=== PATIENT | female | born 1985 | race Caucasian/White ===

== ENCOUNTER 2023-12-31 20:25 | Emergency (ER) | payer OTHER, SELFPAY ==
[2023-12-31 20:36] VITALS: BP 101/69; PULSE 78; TEMP 37.2; O2SAT 98; BMI 29.1
--- NOTE | 2023-12-31 20:50 | CT_ITS ---
[facility] [place] [id number] Patient Name: MONICA GUTIERREZ MRN: [id number] date: 1985 Sex: F Assigned Patient Location: ER Current Patient Location: ED.[facility] Accession/Order Number: [id number] Exam Date: 12/31/2023 21:30 Report Date: 12/31/2023 22:28 At the request of: HOWARD TREJO Procedure: CT abdomen pelvis wo con EXAMINATION: CT abdomen pelvis wo con, 12/31/2023 6:30 PM PDT HISTORY: Left flank pain COMPARISON: None. TECHNIQUE: CT scan of the abdomen and pelvis was performed without IV contrast. CT dose reduction technique was used, including Automated Exposure Control. FINDINGS: Lung: No significant finding. Liver: No significant finding. Gallbladder: No significant finding. Spleen: No significant finding. Pancreas: No significant finding. Adrenal glands: No significant finding. Kidneys, ureters and bladder: No renal/urinary tract calculi. No hydronephrosis. Bladder is unremarkable. Bowel: Surgical changes from gastric bypass. No evidence of bowel obstruction. No focal inflammatory changes. Normal appendix. Colonic diverticulosis without diverticulitis. Peritoneum/retroperitoneum: No significant finding. Lymph nodes: No significant finding. Vessels: No significant finding. Body wall: No significant finding. Reproductive: IUD in place. Bones: No significant finding. CT/CT abdomen pelvis wo con IMPRESSION: No acute findings. Electronically authenticated by: ELYSIA ALVARADO Date: 12/31/2023 22:28
--- NOTE | 2023-12-31 20:52 | ED_ITS ---
Documented by User: JERILYN Saldivar 12/31/23 22:00 HPI HPI - General Adult General Chief complaint: Back Pain/Injury Stated complaint: LEFT SIDED BACK PAIN Time Seen by Provider: 12/31/23 20:46 Source: patient Mode of arrival: walk-in Limitations: no limitations History of Present Illness HPI narrative: Is a 38-year-old female who presents to the emergency department for left flank pain that began abruptly after eating dinner. She has a history of previous gastric bypass 3 years ago and laparoscopic surgery earlier this year to look for an internal hernia which was not present. She states the pain radiates from the left inferior thoracic spine to the left low back and into the left flank. She does not have abdominal pain and has not had any fevers, chills, nausea, vomiting or urinary symptoms. She is not concerned for . She took Aleve and tizanidine prior to arrival without improvement. No falls or injuries. Related Data Allergies Allergy/AdvReac Type Severity Reaction Status Date / Time ketorolac [From Toradol] Allergy Intermediate Hives Verified 12/31/23 20:36 Penicillins Allergy Intermediate Hives Verified 12/31/23 20:36 Opioid HPI Opioid Management Most Recent Opioid Data: Last Pain Scale 5 12/31/23 21:54 Last ED Pain Assessment 12/31/23 21:54 Last MAR Pain Assessment 01/01/24 00:40 Review of Systems ROS Constitutional Denies: fever or chills Ears, nose, mouth, and throat Denies: throat pain or nasal congestion Cardiovascular Denies: chest pain Respiratory Denies: shortness of breath or cough Gastrointestinal Denies: abdominal pain, nausea, vomiting or diarrhea Genitourinary Denies: painful urination Musculoskeletal Reports: back pain; Denies: neck pain or extremity pain Integumentary/Breast Denies: rash Neurological Denies: headache Hematologic/Lymphatic Denies: easy bruising or easy bleeding Exam Narrative Exam Narrative: Gen.: Awake, alert, in no distress Head: Normocephalic, atraumatic ENT: Moist mucous membranes Respiratory: No respiratory distress Gastrointestinal: Abdomen is soft, nondistended and nontender to palpation Back: No bony tenderness of the T-spine or L-spine with diffuse tenderness of the left paraspinal muscles of the left inferior thoracic back and left lumbar back. Extremities: Moves extremities equally Psych: Normal mood and affect Neuro: No focal neuro deficit Skin: Warm, dry, intact Constitutional Vital Signs, click to edit/add: Last Vital Signs Temp 98.9 F 12/31/23 20:36 Pulse 78 12/31/23 20:36 Resp 18 12/31/23 20:36 BP 101/67 12/31/23 22:19 Pulse Ox 98 12/31/23 20:36 O2 Del Method Room Air 12/31/23 20:36 Course Vital Signs Vital signs: Vital Signs Temperature 98.9 F 12/31/23 20:36 Pulse Rate 78 12/31/23 20:36 Respiratory Rate 18 12/31/23 20:36 Blood Pressure 101/69 12/31/23 20:36 Pulse Oximetry 98 12/31/23 20:36 Oxygen Delivery Method Room Air 12/31/23 20:36 Temperature 98.9 F 12/31/23 20:36 Pulse Rate 78 12/31/23 20:36 Respiratory Rate 18 12/31/23 20:36 Blood Pressure 101/67 12/31/23 22:19 Pulse Oximetry 98 12/31/23 20:36 Oxygen Delivery Method Room Air 12/31/23 20:36 Medical Decision Making MDM Narrative Medical decision making narrative: 2199: Patient medicated with IV Dilaudid, fluids, Norflex, Zofran. She was sent for CT which is pending at this time. Lab studies and urine specimen are unremarkable. Case is turned over to attending physician at this time for results of CT Medical Records Medical records reviewed: Yes I reviewed the patient's medical records Lab Data Lab results reviewed: Yes I reviewed the patient's lab results Labs: Lab Results 12/31/23 12/31/23 Range/Units 20:57 21:00 WBC 9.6 (4.0-11.0) 10^3/uL RBC 3.95 L (4.20-5.40) 10^6/uL Hgb 12.1 (12.0-16.0) g/dL Hct 37.6 (36.0-48.0) % MCV 95.2 (81.0-99.0) fL MCH 30.6 (26.7-34.0) pg MCHC 32.2 (29.9-35.2) g/dL RDW 12.1 (11.0-15.0) % Plt Count 273 (150-450) 10^3/uL MPV 10.4 (9.5-13.5) fL Neut % (Auto) 54.9 (43.0-75.0) % Lymph % (Auto) 34.5 (20.5-60.0) % [place] % (Auto) 6.3 (1.7-12.0) % Eos % (Auto) 3.2 (0.9-7.0) % Baso % (Auto) 0.9 (0.2-2.0) % Neut # (Auto) 5.3 (1.4-6.5) 10^3/uL Lymph # (Auto) 3.3 (1.2-3.8) 10^3/uL Sierra # (Auto) 0.6 (0.3-0.8) 10^3/uL Eos # (Auto) 0.3 (0.0-0.7) 10^3/uL Baso # (Auto) 0.1 (0.0-0.1) 10^3/uL Abs Immat Gran (auto) 0.02 (0.00-0.03) 10^3/uL Imm/Tot Granulo (auto) 0.2 (0.0-0.5) % Sodium 137 (136-145) mmol/L Potassium 4.0 (3.5-5.1) mmol/L Chloride 103 (98-107) mmol/L Carbon Dioxide 27.1 (21.0-32.0) mmol/L Anion Gap 10.9 BUN 22.0 H (7.0-18.0) mg/dL Creatinine 0.72 (0.55-1.02) mg/dL Est GFR ( Amer) >60 (>=60) Est GFR (Non-Af Amer) >60 (>=60) BUN/Creatinine Ratio 30.6 Glucose 86 (74-106) mg/dL Lactate 0.9 (0.4-2.0) mmol/L Calcium 9.2 (8.5-10.1) mg/dL Total Bilirubin 0.2 (0.2-1.0) mg/dL AST 17 (15-37) U/L ALT 26 (14-59) U/L Alkaline Phosphatase 76 (46-116) U/L Total Protein 7.0 (6.4-8.2) g/dL Albumin 4.2 (3.4-5.0) g/dL Globulin 2.8 g/dL Albumin/Globulin Ratio 1.5 Urine Color Yellow (YELLOW) Urine Clarity Clear (CLEAR) Urine pH 5.5 (5.0-9.0) Ur Specific [place] >=1.030 A (1.005-1.025) Urine Protein Negative (NEG/TRACE) mg/dL Urine Glucose (UA) Negative (NEGATIVE) mg/dL Urine Ketones Negative (NEGATIVE) mg/dL Urine Occult Blood Negative (NEGATIVE) Urine Nitrite Negative (NEGATIVE) Urine Bilirubin Negative (NEGATIVE) Urine Urobilinogen 0.2 (0.2-1.0) EU/dL Ur Leukocyte Esterase Negative (NEGATIVE) Discharge Plan Discharge Stand Alone Forms: Portal Instructions Chief Complaint: Back Pain/Injury Clinical Impression: Back pain Patient Disposition: Home, Self-Care Print Language: [place] Instructions: Back Pain (ED) Additional Instructions: follow up with your doctor this week for recheck Referrals: Physician,Non-Staff, [Physician] - 1 week Documented by User: Dioni Emery MD 01/01/24 01:52 HPI HPI - General Adult General Chief complaint: Back Pain/Injury Stated complaint: LEFT SIDED BACK PAIN Time Seen by Provider: 12/31/23 20:46 Related Data Allergies Allergy/AdvReac Type Severity Reaction Status Date / Time ketorolac [From Toradol] Allergy Intermediate Hives Verified 12/31/23 20:36 Penicillins Allergy Intermediate Hives Verified 12/31/23 20:36 Opioid HPI Opioid Management Most Recent Opioid Data: Last Pain Scale 5 12/31/23 21:54 Last ED Pain Assessment 12/31/23 21:54 Last MAR Pain Assessment 01/01/24 00:40 Exam Constitutional Vital Signs, click to edit/add: Last Vital Signs Temp 98.9 F 12/31/23 20:36 Pulse 78 12/31/23 20:36 Resp 18 12/31/23 20:36 BP 101/67 05/13/24 22:19 Pulse Ox 98 12/31/23 20:36 O2 Del Method Room Air 12/31/23 20:36 Course Vital Signs Vital signs: Vital Signs Temperature 98.9 F 12/31/23 20:36 Pulse Rate 78 12/31/23 20:36 Respiratory Rate 18 12/31/23 20:36 Blood Pressure 101/69 12/31/23 20:36 Pulse Oximetry 98 12/31/23 20:36 Oxygen Delivery Method Room Air 12/31/23 20:36 Temperature 98.9 F 12/31/23 20:36 Pulse Rate 78 12/31/23 20:36 Respiratory Rate 18 12/31/23 20:36 Blood Pressure 101/67 12/31/23 22:19 Pulse Oximetry 98 12/31/23 20:36 Oxygen Delivery Method Room Air 12/31/23 20:36 Medical Decision Making MDM Narrative Medical decision making narrative: 2199: Patient medicated with IV Dilaudid, fluids, Norflex, Zofran. She was sent for CT which is pending at this time. Lab studies and urine specimen are unremarkable. Case is turned over to attending physician at this time for results of CT. CT results returned neg. Patient re examined and was pointing to her left thoracic back as the area where the pain began. CTA chest added and this also returned neg. Patient treated with cocktail of magnsium, solumedrol and norco and is now feeling the best she has felt since being here. Discharged home to follow up with her doctor Lab Data Labs: Lab Results 12/31/23 12/31/23 Range/Units 20:57 21:00 WBC 9.6 (4.0-11.0) 10^3/uL RBC 3.95 L (4.20-5.40) 10^6/uL Hgb 12.1 (12.0-16.0) g/dL Hct 37.6 (36.0-48.0) % MCV 95.2 (81.0-99.0) fL MCH 30.6 (26.7-34.0) pg MCHC 32.2 (29.9-35.2) g/dL RDW 12.1 (11.0-15.0) % Plt Count 273 (150-450) 10^3/uL MPV 10.4 (9.5-13.5) fL Neut % (Auto) 54.9 (43.0-75.0) % Lymph % (Auto) 34.5 (20.5-60.0) % [place] % (Auto) 6.3 (1.7-12.0) % Eos % (Auto) 3.2 (0.9-7.0) % Baso % (Auto) 0.9 (0.2-2.0) % Neut # (Auto) 5.3 (1.4-6.5) 10^3/uL Lymph # (Auto) 3.3 (1.2-3.8) 10^3/uL [place] # (Auto) 0.6 (0.3-0.8) 10^3/uL Eos # (Auto) 0.3 (0.0-0.7) 10^3/uL Baso # (Auto) 0.1 (0.0-0.1) 10^3/uL Abs Immat Gran (auto) 0.02 (0.00-0.03) 10^3/uL Imm/Tot Granulo (auto) 0.2 (0.0-0.5) % Sodium 137 (136-145) mmol/L Potassium 4.0 (3.5-5.1) mmol/L Chloride 103 (98-107) mmol/L Carbon Dioxide 27.1 (21.0-32.0) mmol/L Anion Gap 10.9 BUN 22.0 H (7.0-18.0) mg/dL Creatinine 0.72 (0.55-1.02) mg/dL Est GFR ( Amer) >60 (>=60) Est GFR (Non-Af Amer) >60 (>=60) BUN/Creatinine Ratio 30.6 Glucose 86 (74-106) mg/dL Lactate 0.9 (0.4-2.0) mmol/L Calcium 9.2 (8.5-10.1) mg/dL Total Bilirubin 0.2 (0.2-1.0) mg/dL AST 17 (15-37) U/L ALT 26 (14-59) U/L Alkaline Phosphatase 76 (46-116) U/L Total Protein 7.0 (6.4-8.2) g/dL Albumin 4.2 (3.4-5.0) g/dL Globulin 2.8 g/dL Albumin/Globulin Ratio 1.5 Urine Color Yellow (YELLOW) Urine Clarity Clear (CLEAR) Urine pH 5.5 (5.0-9.0) Ur Specific [place] >=1.030 A (1.005-1.025) Urine Protein Negative (NEG/TRACE) mg/dL Urine Glucose (UA) Negative (NEGATIVE) mg/dL Urine Ketones Negative (NEGATIVE) mg/dL Urine Occult Blood Negative (NEGATIVE) Urine Nitrite Negative (NEGATIVE) Urine Bilirubin Negative (NEGATIVE) Urine Urobilinogen 0.2 (0.2-1.0) EU/dL Ur Leukocyte Esterase Negative (NEGATIVE) Discharge Plan Discharge Stand Alone Forms: Portal Instructions Chief Complaint: Back Pain/Injury Clinical Impression: Back pain Patient Disposition: Home, Self-Care Print Language: [place] Instructions: Back Pain (ED) Additional Instructions: follow up with your doctor this week for recheck Referrals: Physician,Non-Staff, [Physician] - 1 week
[2023-12-31] MEDS: 0.9 % SODIUM CHLORIDE 1,000 ML 999 ML IV (21:05)
[2023-12-31] MEDS: HYDROMORPHONE HCL 1 MG/ML CARTRIDGE IVP (21:06)
[2023-12-31] MEDS: ORPHENADRINE 60 MG/ 2 ML VIAL IV (21:06)
[2023-12-31] MEDS: ONDANSETRON PF 4 MG/2 ML VIAL IV (21:06)
[2023-12-31 21:08] LABS: Basophils Absolute Auto 0.1 10^3/uL (0.0-0.1); Basophils Percent Auto 0.9 % (0.2-2.0); Eosinophils Absolute Auto 0.3 10^3/uL (0.0-0.7); Eosinophils Percent Auto 3.2 % (0.9-7.0); Hematocrit 37.6 % (36.0-48.0); Hemoglobin 12.1 g/dL (12.0-16.0); Immature Granulocytes Abs Auto 0.02 10^3/uL (0.00-0.03); Immature Granulocytes Pct Auto 0.2 % (0.0-0.5); Lymphocytes Absolute Auto 3.3 10^3/uL (1.2-3.8); Lymphocytes Percent Auto 34.5 % (20.5-60.0); Mean Corpuscular HGB Conc 32.2 g/dL (29.9-35.2); Mean Corpuscular Hemoglobin 30.6 pg (26.7-34.0); Mean Corpuscular Volume 95.2 fL (81.0-99.0); Mean Platelet Volume 10.4 fL (9.5-13.5); Monocytes Absolute Auto 0.6 10^3/uL (0.3-0.8); Monocytes Percent Auto 6.3 % (1.7-12.0); Neutrophils Absolute Auto 5.3 10^3/uL (1.4-6.5); Neutrophils Percent Auto 54.9 % (43.0-75.0); Platelet Count 273 10^3/uL (150-450); Red Blood Count 3.95 10^6/uL (4.20-5.40); Red Cell Distribution Width 12.1 % (11.0-15.0); White Blood Count 9.6 10^3/uL (4.0-11.0)
[2023-12-31 21:09] LABS: Bilirubin Urine NEGATIVE (NEGATIVE); Blood Urine NEGATIVE (NEGATIVE); Clarity Urine CLEAR (CLEAR); Color Urine YELLOW (YELLOW); Glucose Urine UA NEGATIVE (NEGATIVE); Ketones Urine NEGATIVE (NEGATIVE); Leukocyte Esterase Urine NEGATIVE (NEGATIVE); Nitrite Urine NEGATIVE (NEGATIVE); Protein Urine NEGATIVE (NEG/TRACE); Specific Gravity Urine >=1.030 (1.005-1.025); Urine Microscopic Indicated NO; Urobilinogen Urine 0.2 EU/dL (0.2-1.0); pH Urine 5.5 (5.0-9.0)
[2023-12-31 21:26] LABS: Lactate/Lactic Acid 0.9 mmol/L (0.4-2.0)
[2023-12-31 21:32] LABS: Alanine Aminotransferase 26 U/L (14-59); Albumin Globulin Ratio 1.5; Albumin Level 4.2 g/dL (3.4-5.0); Alkaline Phosphatase 76 U/L (46-116); Anion Gap 10.9; Aspartate Amino Transferase 17 U/L (15-37); BUN Creatinine Ratio 30.6; Bilirubin Total 0.2 mg/dL (0.2-1.0); Calcium 9.2 mg/dL (8.5-10.1); Carbon Dioxide 27.1 mmol/L (21.0-32.0); Chloride 103 mmol/L (98-107); Estimated GFR (African America >60 (>=60); Estimated GFR (Non-African Ame >60 (>=60); Globulin 2.8 g/dL; Glucose 86 mg/dL (74-106); Sodium 137 mmol/L (136-145)
[2023-12-31 22:19] VITALS: BP 101/67
--- NOTE | 2023-12-31 22:41 | CT_ITS ---
The [address] [address] Patient Name: MONICA GUTIERREZ MRN: [id number] date: 1985 Sex: F Assigned Patient Location: ER Current Patient Location: Accession/Order Number: [id number] Exam Date: 12/31/2023 23:17 Report Date: 01/01/2024 00:02 At the request of: ISRRAEL DSOUZA Procedure: CT angio chest CT angio chest 12/31/2023 10:17 PM CDT: History: chest pain Chest pain. Possible pulmonary embolism. Comparison: None. Technique: IV Contrast enhanced CTA imaging of the chest. Sagittal and coronal MIP reformatted images are provided. This CT exam was performed using one or more of the following dose reduction techniques: Automated exposure control, adjustment of the mA and/or KV according to patient size, or use of iterative reconstruction technique. Findings: The central airway is midline and patent. The lungs are well expanded and clear. There is no acute infiltrate. There is no pleural effusion or pneumothorax. The heart size is normal. There is no pericardial effusion. The pulmonary arteries are patent and normal in caliber. There is no pulmonary embolism. The thoracic aorta is patent and normal in caliber. Limited imaging through the upper abdomen reveals no acute abnormality. The bony thorax is intact without acute abnormality. CT/CT angio chest Impression: No acute abnormality. No pulmonary embolism. Electronically authenticated by: RAMSES FAN Date: 01/01/2024 00:02
[2024-01-01] MEDS: HYDROCODONE/ACET 5-325 MG TABLET 2 TAB PO (00:40)
[2024-01-01] MEDS: MAGNESIUM SULFATE IN WATER 2 GM/50 ML PREMIX IV (00:41)
[2024-01-01] MEDS: METHYLPREDNISOLONE SOD SUCC PF 125 MG/2 ML VIAL IVP (00:41)
[2024-01-01 02:12] VITALS: BP 120/74; PULSE 88; O2SAT 99
== END 2024-01-01 02:12 | disposition home or self-care (01) ==
PROVIDERS: Physician Assistant; Emergency Provider Internal Medicine; PCP Family Medicine
DX: M54.89 Other dorsalgia (principal); Z98.84 Bariatric surgery status
CPT/HCPCS: 36415; 71275; 74176; 80053; 81003; 83605; 85025; 96365; 96375; 99284; J1170; J2919; Q9967